=== PATIENT | male | born 1940 | race Caucasian/White ===

== ENCOUNTER 2016-12-07 15:44 | Emergency (ER) | payer OTHER ==
[~2016-12-07] VITALS: Ht 170.1 cm; Wt 59.0 kg
[2016-12-07 16:23] LABS: BASO # 0.1 10*3/uL (0.0-0.1); BASO % 0.8 % (0.0-1.0); EOS # 0.2 10*3/uL (0.0-0.4); EOS % 2.3 % (1.0-4.0); HEMATOCRIT 36.9 % (42.0-52.0); HEMOGLOBIN 12.4 g/dl (14.0-18.0); LYMPH # 1.8 10*3/uL (1.3-4.4); LYMPH % 22.1 % (27.0-41.0); MEAN CELL VOLUME 94.9 fl (80.0-94.0); MEAN CORPUSCULAR HGB 31.9 pg (27.0-31.0); MEAN CORPUSCULAR HGB CONC 33.6 g/dl (33.0-37.0); MEAN PLATELET VOLUME 9.7 fl (9.6-12.3); MONO # 0.5 10*3/uL (0.1-1.0); MONO % 6.5 % (3.0-9.0); NEUT # 5.7 10*3/uL (2.3-7.9); NEUT % 68.1 % (47.0-73.0); PLATELET COUNT AUTOMATED 167 10*3/uL (130-400); RED BLOOD COUNT 3.89 10*6/uL (4.50-5.90); RED CELL DISTRI WIDTH 13.2 % (0-14.5); WHITE BLOOD COUNT 8.3 10*3/uL (4.8-10.8)
[2016-12-07 16:41] LABS: ACT PARTIAL THROMBO TIME 27.8 SECONDS (20.8-31.5)
[2016-12-07 16:44] LABS: ALBUMIN 3.5 gm/dl (3.1-4.5); ALKALINE PHOSPHATASE 75 U/L (45-117); BUN 22 mg/dl (7-24); CHLORIDE 104 mmol/L (98-107); CREATININE 1.09 mg/dL (0.70-1.30); LIPASE 222 U/L (73-393); MAGNESIUM 2.3 mg/dL (1.5-2.1); POTASSIUM 4.4 mmol/L (3.5-5.1); SGOT/AST 16 IU/L (3-35); SGPT/ALT 21 U/L (12-78); SODIUM 138 mmol/L (136-145); TOTAL PROTEIN 6.8 gm/dL (6.4-8.2)
[2016-12-07 16:46] LABS: TROPONIN I < 0.015 ng/ml (<0.045)
[2016-12-07] MEDS ORDERED: TOPROL XL50 M1 PO (17:37)
== END 2016-12-07 17:42 | disposition home or self-care (01) ==
LOC: ED 15:44
PROVIDERS: Emergency Medicine
DX: I48.92 Unspecified atrial flutter (principal); Z98.890 Other specified postprocedural states